=== PATIENT | male | born 1950 | race Caucasian/White ===

== ENCOUNTER → 2023-10-20 10:15 | Outpatient (REF) | payer OTHER, SELFPAY | LOC: RAD 10:15 | PROVIDERS: ATTENDING PHYSICIAN Internal Medicine; FAMILY PHYSICIAN Family Medicine | DX: R07.89 Other chest pain (principal); R94.39 Abnormal result of other cardiovascular function study | CPT/HCPCS: 75574; Q9967 ==

== ENCOUNTER 2025-03-28 20:36 | Emergency (ER) | payer MEDICARE, BC, SELFPAY ==
[2025-03-28 20:39] VITALS: BP 149/69
[2025-03-28 20:56] VITALS: BMI 22.7
--- NOTE | 2025-03-28 21:52 | ED.SKININJ ---
HPI-Injury
General
Chief Complaint: Skin Surface Trauma
Source: patient
Exam Limitations: none
Time Seen by Provider: 03/28/25 21:48
Nursing documentation reviewed up to this point in time: agreed with except (It is his left foot)
History of Present Illness-Injury
Initial Injury comments:
74-year-old male states he open the refrigerator door and a heavy glass Tupperware container fell onto the top of his left foot causing laceration at the base of his big toe. He had a tetanus immunization within the past 5 years.
Past History
Past History
ED Past Medical History: Hypercholesterolemia
ED Past Surgical History: Appendectomy
Social History
Tobacco: Non-smoker
Alcohol: Occasional
Personal:
Living: with family
Employment: Retired
Review of Systems
Review of Systems
Allergies reviewed?: Yes
All Other Systems: ROS reviewed and negative except as documented in HPI and ROS
Skin: Reports other (Cut top of left foot)
Skin Exam
Laceration
Left foot dorsum base of big toe:
Length in cm: 1.5
Orientation: horizontal
Type of Laceration: simple
Any active bleeding?: low grade venous oozing
Distal skin color and temperature: normal-warm & good color
Normal distal neurovascular exam: Yes
Range of motion: full
Phy Exam
Physical Exam
Physical Exam:
PHYSICAL EXAMINATION:
General: no apparent distress, not acutely ill
Neuro: alert and oriented.
Psychiatric: well kept. interactive and cooperative
Musculoskeletal: Moves with ease
Skin: Warm, pink.
Course
Orders/Labs/Results
Orders:
Orders
03/28/25 21:18
Toes 2 Views, Left CR [CR Toe(s) Min 2 Vw Left] Urgent
Comment:
Reason For Exam: injury to left great toe
Indicate Which Toe:: Great
Vital Signs
Initial and Last Documented VS:
Initial Vital Signs
Temp Pulse Resp BP Pulse Ox
97.6 F 55 15 149/69 99
03/28/25 20:39 03/28/25 20:39 03/28/25 20:39 03/28/25 20:39 03/28/25 20:39
Last Documented Vital Signs
Temp Pulse Resp BP Pulse Ox
97.6 F 55 15 149/69 98
03/28/25 20:39 03/28/25 20:39 03/28/25 20:39 03/28/25 20:39 03/28/25 21:55
Procedures
Laceration Closure
Left foot dorsum base of big toe:
Status of Wound: clean
Size of Wound in cm: 1.5
Description of Wound Edges: sharp
Preparation: cleaned with saline
Anesthesia: 1% Lidocaine
Wound exploration: explored to base- no FB and no tendon involvement
Type of Closure: single layer closure
Skin Closure Material: 4-0 nylon
Number of sutures: 3
Additional information:
Antibiotic ointment and dressing applied
MDM/Problems Addressed
MDM/Problems Addressed:
74-year-old male states he open the refrigerator door and a heavy glass Tupperware container fell onto the top of his left foot causing laceration at the base of his big toe. He had a tetanus immunization within the past 5 years.
X-ray initially read by this examiner: No fracture, no foreign body.
*Pulse Oximetry
SaO2: 98
Oxygen Mode of Delivery: Room air
Patient hypoxic: not evaluated
*Critical Care Note
Total Time (30-74mins, 75-104mins- exclusive of procedures): Not Applicable
ED Attending Note
-
Portions of this chart may have been created with voice recognition software.� Occasional wrong word or��sound alike� substitutions may have occurred due to the inherent limitations of voice recognition software.
Discharge Plan
Departure
Patient Disposition: Home (Routine Discharge)
Date of Disposition: 03/28/25
Time of Disposition: 22:07
Patient with high blood pressure during this ER visit?: No
Condition: Good
Discharge Problem:
Laceration of dorsum of left foot
Instructions: Laceration Repair With Stitches (DC)
Referrals:
Biju Walters MD [Family Provider, [facility]] - Call in 1-3 days for appt
Activity Restrictions/Additional Instructions:
As we discussed, it takes about 2 weeks for the steroid to heal. Keep it clean dry and covered except for showering.
Seek medical care immediately if you notice signs of infection which may include increasing redness, swelling, pus drainage, red streak up the foot or fever.
Have the sutures removed in 12 to 14 days
Remove the current dressing tomorrow and you may replace it with a simple Band-Aid.
Interventions
Interventions:
*Risk Screen - Suicide Last Done: 03/28/25 20:39
*General Assessment Last Done: 03/28/25 20:39
*Neglect/Abuse Screening Last Done: 03/28/25 20:39
*ED- Fall Risk Assessment Last Done: 03/28/25 20:57
*ED COVID-19 Vaccine History Last Done: 03/28/25 20:57
*Nursing Disposition Last Done: 03/28/25 22:20
ED-Skin Assessment Last Done: 03/28/25 20:59
Discharge Date and Time
Discharge Date/Time: 03/28/25 22:21
Print Language: [place]
== END 2025-03-28 22:21 | disposition home or self-care (01) ==
LOC: EMR 20:36
PROVIDERS: EMERGENCY PHYSICIAN Emergency Medicine; FAMILY PHYSICIAN Family Medicine
DX: S91.312A Laceration without foreign body, left foot, initial encounter (principal); W19.XXXA Unspecified fall, initial encounter; E78.00 Pure hypercholesterolemia, unspecified; Z90.49 Acquired absence of other specified parts of digestive tract
CPT/HCPCS: 99283; 12001; 73660

== ENCOUNTER → 2025-04-24 15:15 | Outpatient (REF) | payer MEDICARE, BC, SELFPAY | LOC: CLAB 15:15 | PROVIDERS: ATTENDING PHYSICIAN Podiatrist Foot & Ankle Surgery | DX: S96.122A Laceration of muscle and tendon of long extensor muscle of toe at ankle and foot level, left foot, initial encounter (principal); M79.672 Pain in left foot | CPT/HCPCS: 87070; 87075; 87205 ==